=== PATIENT | female | born 1985 | race Caucasian/White ===

== ENCOUNTER 2025-05-02 13:21 | Emergency (ER) | payer BC, SELFPAY ==
[2025-05-02 13:24] VITALS: BP 160/107
[2025-05-02 13:44] LABS: Hematocrit 37.3 % (37.0-47.0); Hemoglobin 12.4 g/dL (12.0-16.0); Mean Corp Hgb Conc. 33.2 g/dL (33.0-37.0); Mean Corpuscular Volume 87.8 fL (81.0-99.0); Nucleated Red Blood Cells % 0 %; Platelet Count 305 10^3/uL (130-400); Red Cell Dist. Width 12.4 % (11.5-14.5)
[2025-05-02 13:54] LABS: ALT (SGPT) 14 U/L (0-35); AST (SGOT) 23 U/L (14-36); Albumin 4.5 g/dl (3.5-5.0); Alkaline Phosphatase 68 U/L (38-126); Blood Urea Nitrogen 5 mg/dl (7-17); Calcium 9.4 mg/dl (8.4-10.2); Carbon Dioxide 28 mmol/L (22-30); Chloride 105 mmol/L (98-107); Glucose 88 mg/dl (70-99); Potassium 4.2 mmol/L (3.5-5.1); Sodium 138 mmol/L (135-145); Total Protein 7.5 g/dl (6.3-8.2); eGFR > 60.00
--- NOTE | 2025-05-02 14:36 | ED.GENMED ---
History of Present Illness
General
Chief Complaint: Blood Pressure Problem
Time Seen by Provider: 05/02/25 14:36
History of Present Illness
History of Present Illness:
FOCUSED PAST MEDICAL HISTORY
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
REVIEW OF OLD RECORDS
- Was seen in 2021 here with missed at 8 weeks
Note:
CHIEF COMPLAINT(S)
Severe headache, nausea, and elevated blood pressure.
HISTORY OF PRESENT ILLNESS
The patient is a 39-year-old female who presented to the emergency department with complaints of an extremely severe headache, which she described as one of the worst she has ever experienced. The headache began suddenly around 10 a.m. today while
she was wrapping presents. She initially thought it might be a typical migraine but noted a significant increase in severity, accompanied by severe nausea and vomiting. She also reported episodes of high blood pressure, with readings previously
documented as over 200 mmHg. Today, upon arrival at the ER, her blood pressure was 160 mmHg.
The patient has a history of hypertension, which started approximately two and a half years ago during childbirth. She is currently on Benazepril for hypertension but believes the dosage might need to be adjusted as she recently obtained health
insurance and the medication hasnt been reviewed since the of her son. She describes her symptoms of high blood pressure as including blurred vision and headaches. The severity of her current symptoms has caused her significant distress and
anxiety, so much so that her brought her to the hospital after finding her very symptomatic and on the floor.
The emergency department performed blood work that returned normal results, although an intravenous line has not yet been placed. The patient expressed a notable level of anxiety about her symptoms, reporting this to her family members as well. The
plan is to conduct a CT scan to rule out any catastrophic events like intracranial bleeding. Treatment with medications typically used for migraine management and blood pressure control was discussed, including Toradol for pain.
CHRONIC MEDICAL CONDITIONS SIGNIFICANTLY AFFECTING CARE
Hypertension (since childbirth approximately two and a half years ago).
SOCIAL DETERMINANTS AFFECTING HEALTH
The patient reported not having had health insurance in the past, which affected her ability to adjust her medication dosage and manage her blood pressure effectively.
MEDICATIONS
Benazepril, current dosage not specified but under review due to recent insurance acquisition.
REVIEW OF SYSTEMS
- Neurological: Severe headache, described as one of the worst experienced.
- Gastrointestinal: Severe nausea and vomiting.
- Cardiovascular: Reported high blood pressure readings, including a previous level over 200 mmHg.
- Ophthalmologic: Vision blur associated with high blood pressure.
PHYSICAL EXAM
- General: Alert, appears somewhat uncomfortable, initial blood pressure 160/107, however when I was in the room I manually checked and it was 138/80
- Skin: Warm, dry.
- Head: Normocephalic, atraumatic.
- Neck: Supple, trachea midline.
- Eye, Ears, Nose, and Mouth: Oral mucosa moist. She appears somewhat photophobic.
- Cardiovascular: Normal peripheral perfusion, No edema. Regular rate and rhythm.
- Respiratory: Respirations are non-labored.
- Gastrointestinal: Abdomen nondistended.
- Back: Normal range of motion, Normal alignment.
- Musculoskeletal: Normal range of motion, normal strength.
- Neurological: Alert and oriented to person, place, time, and situation, No focal neurological deficit observed. Excellent strength in all extremities.
- Psychiatric: Cooperative, appropriate mood & affect.
PROBLEM LIST
- Acute: Severe headache, nausea, vomiting.
- Chronic: History of hypertension.
PLAN
- Conduct a CT scan to evaluate for intracranial bleeding.
- Initiate treatment with Toradol for headache pain.
- Monitor blood pressure and retake readings.
- Adjust Benazepril dosage following consultation, considering recent insurance acquisition and potential need for medication adjustment.
DIFFERENTIAL DIAGNOSIS
The Differential Diagnosis includes, in no particular order and is not limited to:
- Intracranial hemorrhage
- Migraine
- Hypertensive crisis
- Tension headache
- Cluster headache
- Meningitis
- Sinusitis
- Subarachnoid hemorrhage
- Stress-induced headache
- Medication overuse headache
RADIOLOGY
- CT head obtained given severity of the symptoms.
EKG
- Sinus 62, normal axis, no acute ST abnormality
LABS
- CBC and chemistries unremarkable
UPDATE
-SUMMARY OF ENCOUNTER
The patient, a 39-year-old female, presented to the emergency department with complaints of a severe headache, nausea, and a history of elevated blood pressure. The headache was described as one of the worst she has experienced, starting suddenly
while she was wrapping presents. Investigation included checking for intracranial bleeding. Blood work was normal, and a CT scan was planned to further rule out any catastrophic events. Treatment in the emergency department included Toradol for
headache pain. It was noted that the headache severity and associated symptoms likely represent a migraine, compounded by anxiety over high blood pressure episodes and previous elevated readings. The patients condition improved significantly with
migraine management medications.
DISPOSITION
Discharge.
ASSESSMENT
The patient is likely experiencing a severe migraine, potentially exacerbated by anxiety and elevated blood pressure.
EMERGENCY TREATMENTS ADMINISTERED
Toradol was used for headache pain management, and Reglan was administered via IV to alleviate nausea.
MANAGEMENT OF THE PATIENTS CARE WAS DISCUSSED WITH
Discussion with the mfts to potentially adjust the patients antihypertensive medication, Benazepril, is planned after the holiday period.
PLAN
The patient will be discharged with instructions to follow up with her primary care provider and a mfts. Benazeprils dosage may be adjusted pending consultation. A prescription for Zofran for nausea has been sent to her pharmacy. The CT scan
results will be communicated upon availability.
INDEPENDENT REVIEW OF LABS AND INTERPRETATION OF TESTS
My independent review of the blood work indicates normal values, ruling out acute metabolic causes for the headache.
PATIENT EDUCATION AND COUNSELING
The patient was educated on monitoring blood pressure and recognizing symptoms of severe hypertension. Advised to monitor blood pressure readings regularly and consider adjusting medication post-mfts consultation.
FOLLOW-UP INSTRUCTIONS
The patient should follow up with her primary care physician and arrange an appointment with a mfts to reassess antihypertensive management post-holiday period.
MEDICATION RECONCILIATION
- Continue Benazepril, currently taken as 20 mg.
- Prescribed Zofran for nausea.
MEDICAL DECISION MAKING
- Complexity of Data Reviewed: Chronic conditions affecting care including hypertension. Differential diagnosis includes intracranial hemorrhage, migraine, hypertensive crisis, tension headache, among others.
- Data:
Category 1: Reviewed patients outpatient pharmacy records; confirmed Benazepril dosage.
Category 3: Planned discussion of management with [facility] regarding medication adjustment.
- Risk:
Prescription medication was prescribed, Zofran for nausea.
DIAGNOSIS
- Migraine without aura, ICD-10: G43.009
- Hypertension, ICD-10: I10
On reassessment, patient feels markedly improved after Reglan with Benadryl, fluids, Toradol
Given the severity of her symptoms upon arrival I offered and recommended CT imaging however the patient declined/refused citing cost concerns
We agreed to hold off on the CAT scan since she is markedly improved on reassessment
She will also contact her [facility] for reevaluation and for further blood pressure management
Past History
Past History
ED Past Medical History: Other (chronic back pain. Followed by Pain management. Endometriosis)
ED Past Surgical History: Orthopedic and Other (breast augmentation, rhinoplsty, tracheotomy)
Social History
Tobacco: Non-smoker
Alcohol: Occasional
Drug: None
Personal:
Living: with family
Employment: Employed (self employed hair, makeup)
Family History
Family History: Other (pt is unsure of any family history)
Phy Exam
Physical Exam
Physical Exam:
See HPI
Course
Orders/Labs/Results
Orders:
Orders
05/02/25 13:26
EKG [Electrocardiogram (*1)] Urgent
Reason for Study: Hypertension, Benign
EKG- Treatment ONCE
05/02/25 13:34
CBC/With Diff [Complete Blood Count/With Diff] Urgent
CMP [Comprehensive Metabolic Panel] Urgent
05/02/25 14:55
CT Head W/o Iv Contrast Urgent
Comment:
Reason For Exam: severe new CYR
0.9% Sodium Chloride 1000 ml [Nss] 1,000 ml IV BOLUS
Diphenhydramine [Benadryl] 25 mg IV NOW STA
Ketorolac [Toradol] 15 mg IV NOW STA
Metoclopramide [Reglan] 10 mg IV NOW STA
Abnormal Lab Results
05/02/25
13:34
BUN 5 L mg/dl
(17)
05/02/25 13:34
05/02/25 13:34
Vital Signs
Initial and Last Documented VS:
Initial Vital Signs
Temp Pulse Resp BP Pulse Ox
36.5 C 66 15 160/107 100
05/02/25 13:24 05/02/25 13:24 05/02/25 13:24 05/02/25 13:24 05/02/25 13:24
Last Documented Vital Signs
Temp Pulse Resp BP Pulse Ox
36.5 C 62 16 138/80 98
05/02/25 13:24 05/02/25 15:06 05/02/25 15:06 05/02/25 14:51 05/02/25 15:06
*Pulse Oximetry
SaO2: 100
Oxygen Mode of Delivery: Room air
Patient hypoxic: no
*Critical Care Note
Total Time (30-74mins, 75-104mins- exclusive of procedures): Not Applicable
ED Attending Note
-
Portions of this chart may have been created with voice recognition software.� Occasional wrong word or��sound alike� substitutions may have occurred due to the inherent limitations of voice recognition software.
Discharge Plan
Departure
Patient Disposition: Home (Routine Discharge)
Date of Disposition: 05/02/25
Time of Disposition: 16:17
Patient with high blood pressure during this ER visit?: Yes
Discharge Problem:
Migraine
Instructions: Migraine in adults, BLOOD PRESSURE
Prescriptions:
New
ondansetron HCl 4 mg tablet
4 mg PO Q6H PRN (Reason: nausea and vomiting) Qty: 14 0RF
No Action
alprazolam [Xanax] 0.25 mg Tablet
0.25 mg PO PRN PRN (Reason: anxiety)
hydrocodone-ibuprofen [Vicoprofen] 7.5-200 mg Tablet
1 tab PO PRN PRN (Reason: pain)
Referrals:
Edward Crowley MD [Family Provider, Family Practice]
Activity Restrictions/Additional Instructions:
The maximum dose of benazepril is 40 mg a day. If you are taking 20 mg you could double the dosing to 40 mg once daily. I am sending a prescription for Zofran to your pharmacy.
Interventions
Interventions:
*Risk Screen - Suicide Last Done: 05/02/25 13:24
*General Assessment Last Done: 05/02/25 13:24
*Neglect/Abuse Screening Last Done: 05/02/25 13:24
*ED COVID-19 Vaccine History Last Done: 05/02/25 13:24
*ED Influenza Vaccine History Last Done: 05/02/25 13:24
ED- Cardiac Assessment Last Done: 05/02/25 15:23
ED- Neurological Assessment Last Done: 05/02/25 15:23
ED- Pulmonary Assessment Last Done: 05/02/25 15:23
Discharge Date and Time
Print Language: KOSOVAN
[2025-05-02 14:51] VITALS: BP 138/80
[2025-05-02] MEDS: NSS 1000 IV (15:02)
[2025-05-02] MEDS: TORADOL 15 MG IV (15:02)
[2025-05-02] MEDS: REGLAN 10 MG IV (15:03)
[2025-05-02] MEDS: BENADRYL 25 MG IV (15:04)
[2025-05-02 15:06] VITALS: BMI 24.6
[2025-05-02 16:27] VITALS: BP 105/63
== END 2025-05-02 16:31 | disposition home or self-care (01) ==
LOC: EMR 13:21
PROVIDERS: Emergency Medicine; EMERGENCY PHYSICIAN Emergency Medicine; FAMILY PHYSICIAN Family Medicine
DX: G43.909 Migraine, unspecified, not intractable, without status migrainosus (principal); I10 Essential (primary) hypertension; Z79.899 Other long term (current) drug therapy
CPT/HCPCS: 96374; 96375; 96361; 99284; 80053; 85025; 93005